=== PATIENT | female | born 1955 | race Caucasian/White ===

== ENCOUNTER 2019-03-13 08:05 | Outpatient (CLI) | payer OTHER ==
--- NOTE | 2019-03-14 10:27 | PFT ---
PATIENT HISTORY: HEIGHT: 65 IN WEIGHT: 240 SMOKER: NO HOW LONG: NA PACKS PER DAY: PRODUCTIVE COUGH: LUNG DISEASE: PHYSICIAN INTERPRETATION PFT data: FEV1 2.19 L, 88% predicted, FVC 2.73 L, 83% predicted. There is minimal improvement Bronchodilatation.Total lung capacity is 4.13 L 80% of predicted and is a the lower limits of normal. DLCO is 20.48 89% predicted. Maximum ventilatory Volume is normal. IMPRESSION: The patient has a borderline Restrictive Pulmonary impairment, secondary to obesity. Gas exchange is normal. Verifying Specialist: JIM Bill Peddler: JIM SANDS
== END 2019-03-13 08:06 | disposition home or self-care (01) ==
LOC: CP 08:05
PROVIDERS: ATTEND Internal Medicine Pulmonary Disease
DX: R07.89 Other chest pain (principal); R06.00 Dyspnea, unspecified; Z87.09 Personal history of other diseases of the respiratory system
CPT/HCPCS: 94060; 94727; 94729

== ENCOUNTER 2021-04-28 10:43 | Outpatient (CLI) | payer OTHER | END 2021-04-28 10:44 | disposition home or self-care (01) | LOC: CTENTCT 10:43 | PROVIDERS: ATTEND Specialist | DX: J32.4 Chronic pansinusitis (principal) | CPT/HCPCS: 70486 ==

== ENCOUNTER 2024-06-20 10:24 | Outpatient (CLI) | payer OTHER | END 2024-06-20 10:25 | disposition home or self-care (01) | LOC: SCSMRI 10:24 | PROVIDERS: ATTEND Surgery | DX: R10.13 Epigastric pain (principal); K83.8 Other specified diseases of biliary tract | CPT/HCPCS: 74183; 82565 ==